=== PATIENT | female | born 1960 | race Hispanic/Latino ===

== ENCOUNTER 2017-07-11 15:42 | Emergency (ER) | payer OTHER ==
[2017-07-11 15:49] VITALS: BMI 30.2
[2017-07-11 16:09] VITALS: BP 158/76; PULSE 99; RESP 16; TEMP 98.9; O2SAT 97
--- NOTE | 2017-07-11 16:24 | ED PDOC ---
Arrival/HPI - General Chief Complaint: Upper Extremity Problem/Injury Time Seen by Provider: 07/11/17 15:44 Historian: Patient - History of Present Illness Narrative History of Present Illness (Text): 07/11/17 16:15 57yo F PMH HTN and asthma who presents with LUE pain and immobility. pt states that symptoms started 1month ago and have gradually worsened to the point where for the past 3 days she has not been able to move her arm or lift anything, with mild numbness in L hand. pt had similar episode on her RUE 2 years ago that resolved by a steroid shot by Dr. Goldstein and was dx bursitis. Pt is an employee of [employer] and so she ran into Dr. Goldstein, who recommended she have an XRAY done on her arm before seeing him in office hours tomorrow. pt denies tingling, other neurological symptoms, cp, sob, abdominal pain, headaches , changes in vision/hearing, back pain or neck pain, urinary or bowel changes, fevers/chills, n/v/d. PMD: Dr. Blair Time/Duration: > month Symptom Onset: Gradual Symptom Course: Worsening Severity Level: Severe Activities at Onset: Light Context: Home, Work Past Medical History - Provider Review Nursing Documentation Reviewed: Yes - Past History Past History: Non-Contributing - Infectious Disease Hx of Infectious Diseases: None - Tetanus Immunization Tetanus Immunization: Up to Date - Past Medical History Past Medical History: Non-Contributing - Cardiac Hx Hypertension: Yes - Pulmonary Hx Asthma: Yes - Neurological Hx Neurological Disorder: No - HEENT Hx HEENT Disorder: No - Renal Hx Renal Disorder: No - Endocrine/Metabolic Hx Endocrine Disorders: No - Hematological/Oncological Hx Blood Disorders: No - Integumentary Hx Dermatological Disorder: No - Musculoskeletal/Rheumatological Hx Musculoskeletal Disorders: No Hx Falls: No - Gastrointestinal Hx Gastrointestinal Disorders: No - Genitourinary/Gynecological Hx Genitourinary Disorders: No - Psychiatric Hx Psychophysiologic Disorder: No Hx Depression: No Hx Emotional Abuse: No Hx Physical Abuse: No Hx Substance Use: No - Past Surgical History Past Surgical History: Non-Contributing - Surgical History Hx Cardiac Catheterization: Yes - Suicidal Assessment Feels Threatened In Home Enviroment: No Family/Social History - Physician Review Nursing Documentation Reviewed: Yes Family/Social History: No Known Family HX Smoking Status: Heavy Smoker > 10 Cigarettes Daily Hx Alcohol Use: Yes Frequency of alcohol use: Socially Hx Substance Use: No Hx Substance Use Treatment: No Allergies/Home Meds Allergies/Adverse Reactions: Allergies aspirin Allergy (Verified 07/11/17 15:50) NAUSEA Home Medications: Home Meds Medication Instructions Recorded Confirmed Enalapril Maleate [Enalapril 1 tab PO BID 01/19/14 07/11/17 Maleate] Review of Systems - Physician Review All systems were reviewed & negative as marked: Yes - Review of Systems Constitutional: absent: Fevers Respiratory: absent: SOB Cardiovascular: absent: Chest Pain Gastrointestinal: absent: Abdominal Pain, Diarrhea, Nausea, Vomiting Musculoskeletal: Other (LUE pain and immobility). absent: Back Pain, Neck Pain Neurological: Other (numbness LUE hands) Physical Exam Vital Signs Reviewed: Yes Vital Signs Temp Pulse Resp BP Pulse Ox 07/11/17 15:42 98.9 F 99 H 16 158/76 H 97 Appearance: Positive for: Well-Appearing Pain Distress: None Mental Status: Positive for: Alert and Oriented X 3 - Systems Exam Head: Present: Atraumatic Pupils: Present: PERRL Extroacular Muscles: Present: EOMI Conjunctiva: Present: Normal Mouth: Present: Moist Mucous Membranes Neck: Present: Normal Range of Motion Respiratory/Chest: Present: Clear to Auscultation, Good Air Exchange Cardiovascular: Present: Regular Rate and Rhythm, Normal S1, S2 Abdomen: Present: Normal Bowel Sounds. No: Tenderness, Distention Back: Present: Normal Inspection Upper Extremity: Present: NORMAL PULSES, Neurovascularly Intact, Other (LUE unable to extend arm, mobilizes shoulder with pain and difficulty). No: Edema, Normal ROM Lower Extremity: Present: Normal Inspection, Neurovascularly Intact. No: Edema Neurological: Present: CN II-XII Intact Skin: Present: Warm, Dry Psychiatric: Present: Alert, Oriented x 3 Medical Decision Making ED Course and Treatment: 07/11/17 16:39 Impression: 57yo F presenting with LUE pain and difficulty moving it, likely 2/ 2 bursitis Plan: - XR of LUE - Motrin Progress: 07/11/17 17:08 Creator : Corey Falk MD Dictator : Corey Falk MD Safety Fire Boss : Stable Manager : Corey Falk MD Approver2 : Report Date : 07/11/2017 16:56:59 My Comment : PROCEDURE: Radiographs of the Left Shoulder HISTORY: L arm immobility and pain COMPARISON: No prior. FINDINGS: BONES: Normal. No fracture. JOINTS: Normal. Glenohumeral and acromioclavicular joints preserved. No osteoarthritis. SOFT TISSUES: Normal. OTHER FINDINGS: None. IMPRESSION: Normal radiographs of the left shoulder. Reassessment: symptoms improved. pt advised to f/u Dr. Goldstein and Dr. Blair to establish care. Medically optimized and vitals stable for d/c Re-evaluation Time: 17:10 Reassessment Condition: Re-examined, Improving,but remains with symptoms ( immobility and mild pain of LUE) - RAD Interpretation Radiology Orders: 07/11/17 16:08 SHOULDER LEFT [RAD] Stat Candle Wicker: Radiologist - Medication Orders Current Medication Orders: Discontinued Medications Ibuprofen (Motrin Tab) 600 mg PO STAT STA Stop: 07/11/17 16:09 Last Admin: 07/11/17 16:23 Dose: 600 mg MAR Pain/Vitals Document 07/11/17 16:23 HI (Rec: 07/11/17 16:23 HI [id number]) Pain Reassessment Is This A Pain ReAssessment? No Sleep Is patient sleeping during reassessment? No Presence of Pain Presence of Pain Yes Pain Scale Used Pain Scale Used Numeric Location Left, Right or Bilateral Left Pain Location Body Site Arm Disposition/Present on Arrival - Present on Arrival Any Indicators Present on Arrival: No History of DVT/PE: No History of Uncontrolled Diabetes: No Urinary Catheter: No History of Decub. Ulcer: No History Surgical Site Infection Following: None - Disposition Have Diagnosis and Disposition been Completed?: Yes Diagnosis: Musculoskeletal pain of left upper extremity Disposition: HOME/ ROUTINE Disposition Time: 17:11 Patient Plan: Discharge Condition: FAIR Discharge Instructions (ExitCare): Musculoskeletal Pain (ED) Additional Instructions: Ms. Durbin, thank you for letting us take care of you today. Your provider was Dr. Mesa. You were treated for left upper extremity pain and immobility. The emergency medical care you received today was directed at your acute symptoms. If you were prescribed any medication, please fill it and take as directed. It may take several days for your symptoms to resolve. Return to the Emergency Department if your symptoms worsen, do not improve, or if you have any other problems. Please contact your doctor or call one of the physicians/clinics you have been referred to that are listed on the Patient Visit Information form that is included in your discharge packet. Bring any paperwork you were given at discharge with you along with any medications you are taking to your follow up visit. Our treatment cannot replace ongoing medical care by a primary care provider (PCP) outside of the emergency department. Thank you for allowing the [facility] team to be part of your care today. If you had an X-Ray or CT scan: A Radiologist will review the ED reading if any change in treatment is needed we will contact you. If you had a blood, urine, or wound culture: It will take several days for the results, if any change in treatment is needed we will contact you. If you had an STI test: It will take 48 hours for the results. Please call after 1 week if you have not heard back. Prescriptions: Ibuprofen [Motrin] 400 mg PO Q4 PRN #20 tab PRN Reason: Pain, Mild (1-3) Referrals: Corey Goldstein DO [Staff Provider] - Follow up with primary Anisa Blair MD [Family Provider] - Follow up with primary Forms: [employer] (Vietnamese)
--- NOTE | 2017-07-11 16:58 | RAD ---
PROCEDURE: Radiographs of the Left Shoulder HISTORY: L arm immobility and pain COMPARISON: No prior. FINDINGS: BONES: Normal. No fracture. JOINTS: Normal. Glenohumeral and acromioclavicular joints preserved. No osteoarthritis. SOFT TISSUES: Normal. OTHER FINDINGS: None. IMPRESSION: Normal radiographs of the left shoulder.
== END 2017-07-11 17:36 | disposition home or self-care (01) ==
LOC: ED 15:42
DX: M79.1 Myalgia (principal); M79.602 Pain in left arm; F17.210 Nicotine dependence, cigarettes, uncomplicated; I10 Essential (primary) hypertension